=== PATIENT | female | born 1995 | race Caucasian/White ===

== ENCOUNTER → 2018-12-11 14:07 | Outpatient (CLI) | payer OTHER, BC, SELFPAY ==
--- NOTE | 2018-12-11 14:12 | XR_ITS ---
XR clavicle LT CLINICAL INDICATION: Follow-up clavicle fracture, pain following injury ITS.REASON: ap of clavicle, zanca ORDERING PHYSICIAN: Jil Tena MD PATIENT AGE: 23 years Comparison: None FINDINGS: 2 views of the left clavicle demonstrates a displaced midshaft clavicular fracture. The fracture fragment is displaced inferiorly x 15 mm with mild distraction of fracture fragments. The inferior displacement has increased since this exam. There is 0% bony apposition IMPRESSION: Displaced mid shaft clavicle fracture as described
== END ==
PROVIDERS: PCP Family Medicine; Visit Provider Orthopaedic Surgery
DX: S42.002A Fracture of unspecified part of left clavicle, initial encounter for closed fracture (principal)
CPT/HCPCS: 73000

== ENCOUNTER → 2018-12-18 14:24 | Outpatient (CLI) | payer OTHER, BC, SELFPAY ==
--- NOTE | 2018-12-18 14:32 | XR_ITS ---
XR clavicle LT COMPARISON: Left clavicle 12/11/2018 HISTORY: Follow-up fracture TECHNIQUE: 2 views left clavicle FINDINGS: The fracture midshaft left clavicle is again noted there is been interval improvement in the dorsal displacement of the proximal fracture fragment when compared to the previous study. Whereas previously there was 15 mm dorsal displacement of the proximal fracture fragment in relation to the distal fragment there now is 10 mm dorsal displacement. The angulation at the fracture site is 135 degrees. The AC joint appears normal. IMPRESSION: Fracture midshaft left clavicle with interval improvement in the displacement since previous study
== END ==
PROVIDERS: PCP Family Medicine; Visit Provider Orthopaedic Surgery
DX: S42.002A Fracture of unspecified part of left clavicle, initial encounter for closed fracture (principal)
CPT/HCPCS: 73000

== ENCOUNTER → 2019-01-08 14:15 | Outpatient (CLI) | payer OTHER, BC, SELFPAY ==
[2019-01-08 14:39] LABS: Basophils % 0.4 % (0.1-2.0); Eosinophils % 0.6 % (0.1-12.0); Hematocrit 42.3 % (37.0-47.0); Hemoglobin 13.9 g/dL (12.2-16.2); Lymphocytes # 2.3 K/mm3 (0.7-4.5); Lymphocytes % 37.5 % (10-50); Mean Corpuscular HGB Conc 32.8 g/dL (31.8-35.4); Mean Corpuscular Hemoglobin 34.3 pg (27.0-31.2); Mean Corpuscular Volume 104.3 fl (81-99); Mean Platelet Volume 7.8 fl (7.4-10.4); Monocytes # 0.3 K/mm3 (0.1-1.0); Monocytes % 5.2 % (1.7-9.3); Neutrophils # 3.4 K/mm3 (1.8-7.8); Neutrophils % 56.3 % (37.0-80.0); Platelet Count 238 K/mm3 (142-424); Red Blood Count 4.06 M/mm3 (4.20-5.40); Red Cell Distribution Width 13.2 % (11.5-17.5)
[2019-01-08 14:41] LABS: Urine Pregnancy, HCG Qual. Negative (Negative)
[2019-01-08 16:45] LABS: Alanine Aminotransferase 84 U/L (12-78); Albumin Level 4.2 gm/dL (3.4-5.0); Albumin/Globulin Ratio 1.2 (1.1-1.8); Alkaline Phosphatase 103 U/L (46-116); Aspartate Amino Transferase 65 U/L (15-37); Bilirubin,Total 0.6 mg/dL (0.2-1.0); Blood Urea Nitrogen 12 mg/dL (7-18); Calcium 9.2 mg/dL (8.5-10.1); Carbon Dioxide 29 mmol/L (21.0-32.0); Chloride 104 mmol/L (98-107); Creatinine,Serum 0.79 mg/dL (0.55-1.02); Estimated Glomerular Filt Rate 89 ml/min (>60); GFR (African American) 107 ML/MIN (>60); Globulin 3.5 gm/dl (1.3-3.2); Glucose 77 mg/dL (74-106); Sodium 142 mmol/L (136-145); Total Protein,Serum 7.7 gm/dL (6.4-8.2)
== END ==
PROVIDERS: PCP Family Medicine; Visit Provider Orthopaedic Surgery
DX: Z01.818 Encounter for other preprocedural examination (principal)
CPT/HCPCS: 36415; 80053; 81025; 85025

== ENCOUNTER → 2019-01-17 13:50 | Outpatient (CLI) | payer OTHER, BC, SELFPAY ==
--- NOTE | 2019-01-17 13:54 | XR_ITS ---
XR clavicle LT CLINICAL INDICATION: Follow-up surgery/ORIF ITS.REASON: DOS 01/10/19 ORDERING PHYSICIAN: Jil Tena MD PATIENT AGE: 23 years Comparison: 01/09/2019 FINDINGS: Bone plate remains in place overlying the midshaft of the clavicle with good alignment. Developing callus formation is noted superiorly at fracture site. IMPRESSION: Healing nondisplaced mid shaft clavicle fracture status post ORIF
== END ==
PROVIDERS: PCP Family Medicine; Visit Provider Orthopaedic Surgery
DX: S42.002A Fracture of unspecified part of left clavicle, initial encounter for closed fracture (principal)
CPT/HCPCS: 73000

== ENCOUNTER → 2019-02-07 13:48 | Outpatient (CLI) | payer OTHER, BC, SELFPAY ==
--- NOTE | 2019-02-07 13:52 | XR_ITS ---
XR clavicle LT CLINICAL INDICATION: Follow-up surgery, fracture, pain ITS.REASON: post op views ORDERING PHYSICIAN: Jil Tena MD PATIENT AGE: 23 years Comparison: 01/17/2019 FINDINGS: Bone plate remains in place stabilizing mid shaft clavicular fracture. Callus formation noted at fracture. Good alignment. IMPRESSION: No change, good alignment status post ORIF mid shaft clavicular fracture
== END ==
PROVIDERS: PCP Family Medicine; Visit Provider Orthopaedic Surgery
DX: S42.002A Fracture of unspecified part of left clavicle, initial encounter for closed fracture (principal)
CPT/HCPCS: 73000

== ENCOUNTER → 2019-05-14 16:20 | Outpatient (CLI) | payer OTHER, BC, SELFPAY ==
[2019-05-14 17:00] LABS: Alanine Aminotransferase 76 U/L (12-78); Albumin Level 3.8 gm/dL (3.4-5.0); Albumin/Globulin Ratio 1.2 (1.1-1.8); Alkaline Phosphatase 93 U/L (46-116); Anion Gap 12.3 mEq/L (5-15); Aspartate Amino Transferase 51 U/L (15-37); Bilirubin,Total 0.5 mg/dL (0.2-1.0); Blood Urea Nitrogen 13 mg/dL (7-18); Carbon Dioxide 28 mmol/L (21.0-32.0); Chloride 105 mmol/L (98-107); Chol/HDL Ratio 2.9 (1-3.5); Cholesterol 178 mg/dL (140-200); Creatinine,Serum 0.72 mg/dL (0.55-1.02); Estimated Glomerular Filt Rate 99 ml/min (>60); GFR (African American) 119 ML/MIN (>60); Globulin 3.2 gm/dl (1.3-3.2); Glucose 68 mg/dL (74-106); HDL Cholesterol 61 mg/dL (29-89); LDL Cholesterol 109 mg/dL (0-130); Potassium 4.3 mmoL/L (3.5-5.1); Sodium 141 mmol/L (136-145); T4 (Thyroxine) 8.7 ug/dl (4.7-13.3); Thyroid Stimulating Hormone 1.98 uIU/ml (0.358-3.740); Triglycerides 41 mg/dL (30-200); VLDL Cholesterol 8 mg/dL (0-40)
[2019-05-14 17:11] LABS: Basophils % 0.3 % (0.1-2.0); Hematocrit 37.4 % (37.0-47.0); Hemoglobin 12.3 g/dL (12.2-16.2); Lymphocytes # 2.1 K/mm3 (0.7-4.5); Lymphocytes % 54.9 % (10-50); Mean Corpuscular HGB Conc 32.8 g/dL (31.8-35.4); Mean Corpuscular Hemoglobin 32.9 pg (27.0-31.2); Mean Corpuscular Volume 100.3 fl (81-99); Mean Platelet Volume 7.7 fl (7.4-10.4); Monocytes # 0.2 K/mm3 (0.1-1.0); Monocytes % 5.4 % (1.7-9.3); Neutrophils # 1.5 K/mm3 (1.8-7.8); Neutrophils % 38.4 % (37.0-80.0); Platelet Count 243 K/mm3 (142-424); Red Blood Count 3.73 M/mm3 (4.20-5.40); Red Cell Distribution Width 13.6 % (11.5-17.5); White Blood Count 3.9 K/mm3 (4.8-10.8)
[2019-05-14 17:15] LABS: MANUAL DIFFERENTIAL MANUAL DIFFERENTIAL (MANUAL DIFF)
[2019-05-14 19:23] LABS: Eosinophils % 1 % (0-3); Lymphocytes % 62 % (10-50); Microcytosis 1+; Monocytes % 3 % (2-9); Neutrophils % 33 % (42-76); Platelet Estimate Normal; Total Cells Counted 100
[2019-05-17 06:12] LABS: Folate 15.8 ng/mL (>3.0); Vitamin B12 1039 pg/mL (232-1245)
== END ==
PROVIDERS: Visit Provider Physician Assistant
DX: F31.12 Bipolar disorder, current episode manic without psychotic features, moderate (principal); D64.9 Anemia, unspecified
CPT/HCPCS: 80053; 80061; 82607; 82652; 82746; 84436; 84443; 85007; 85025

== ENCOUNTER → 2020-11-11 14:35 | Outpatient (CLI) | payer OTHER, SELFPAY ==
[2020-11-11 15:05] LABS: Basophils % 0.2 % (0.1-2.0); Eosinophils % 0.2 % (0.1-12.0); Hematocrit 38.6 % (37.0-47.0); Hemoglobin 13.1 g/dL (12.2-16.2); Lymphocytes # 2.4 K/mm3 (0.7-4.5); Lymphocytes % 29.5 % (10-50); Mean Corpuscular HGB Conc 33.9 g/dL (31.8-35.4); Mean Corpuscular Volume 94.3 fl (81-99); Mean Platelet Volume 7.5 fl (7.4-10.4); Monocytes # 0.3 K/mm3 (0.1-1.0); Monocytes % 3.4 % (1.7-9.3); Neutrophils # 5.5 K/mm3 (1.8-7.8); Neutrophils % 66.7 % (37.0-80.0); Platelet Count 305 K/mm3 (142-424); Red Blood Count 4.09 M/mm3 (4.20-5.40); Red Cell Distribution Width 13.5 % (11.5-17.5); White Blood Count 8.3 K/mm3 (4.8-10.8)
[2020-11-11 15:16] LABS: INR 0.95 (0.9-1.1); Prothrombin Time 11.2 seconds (9.4-11.8)
[2020-11-11 15:52] LABS: Alanine Aminotransferase 52 U/L (12-78); Albumin Level 4.7 g/dl (3.5-5.0); Albumin/Globulin Ratio 1.4 (1.1-1.8); Alkaline Phosphatase 77 U/L (38-126); Anion Gap 14.1 mEq/L (5-15); Aspartate Amino Transferase 58 U/L (14-36); Bilirubin,Total 0.3 mg/dl (0.2-1.3); Blood Urea Nitrogen 16 mg/dl (7-17); Calcium 9.9 mg/dl (8.4-10.2); Carbon Dioxide 26 mmol/L (22.0-30.0); Chloride 103 mmol/L (98-107); Estimated Glomerular Filt Rate 86 ml/min (>60); GFR (African American) 104 ML/MIN (>60); Globulin 3.3 g/dL (1.3-3.2); Glucose 97 mg/dl (74-100); Potassium 4.1 mmoL/L (3.5-5.1); Sodium 139 mmol/L (136-145)
[2020-11-13 11:12] LABS: Hep A Ab, IgM Negative (Negative); Hep A Ab, Total Positive (Negative); Hep B Core Ab, Total Negative (Negative)
[2020-11-13 11:38] LABS: Hep B Surface Ab, Qual Reactive (.); Hepatitis B Surface Antigen Negative (Negative)
[2020-11-13 11:39] LABS: HIV Screen 4th Generation wRfx Non Reactive (Non Reactive)
[2020-11-15 13:02] LABS: HCV Genotype Charge YES; Hepatitis C Genotype 1a (.)
== END ==
PROVIDERS: Visit Provider Emergency Medicine
DX: B19.20 Unspecified viral hepatitis C without hepatic coma (principal)
CPT/HCPCS: 36415; 80053; 85025; 85610; 86703; 86704; 86706; 86708; 87340; 87522; 87902; G0432

== ENCOUNTER → 2020-12-16 10:38 | Outpatient (CLI) | payer OTHER, SELFPAY ==
[2020-12-16 11:02] LABS: Basophils % 0.7 % (0.1-2.0); Eosinophils # 0.1 K/mm3 (0.0-0.4); Eosinophils % 1.7 % (0.1-12.0); Hematocrit 38.6 % (37.0-47.0); Lymphocytes # 2.3 K/mm3 (0.7-4.5); Lymphocytes % 47.4 % (10-50); Mean Corpuscular HGB Conc 33.6 g/dL (31.8-35.4); Mean Corpuscular Volume 95.3 fl (81-99); Mean Platelet Volume 7.6 fl (7.4-10.4); Monocytes # 0.2 K/mm3 (0.1-1.0); Monocytes % 4.6 % (1.7-9.3); Neutrophils # 2.2 K/mm3 (1.8-7.8); Neutrophils % 45.7 % (37.0-80.0); Platelet Count 282 K/mm3 (142-424); Red Blood Count 4.05 M/mm3 (4.20-5.40); Red Cell Distribution Width 13.4 % (11.5-17.5); White Blood Count 4.9 K/mm3 (4.8-10.8)
[2020-12-16 11:36] LABS: Alanine Aminotransferase 50 U/L (12-78); Albumin Level 4.4 g/dl (3.5-5.0); Albumin/Globulin Ratio 1.5 (1.1-1.8); Alkaline Phosphatase 76 U/L (38-126); Anion Gap 9.3 mEq/L (5-15); Aspartate Amino Transferase 57 U/L (14-36); Bilirubin,Total 0.3 mg/dl (0.2-1.3); Blood Urea Nitrogen 10 mg/dl (7-17); Calcium 9.8 mg/dl (8.4-10.2); Carbon Dioxide 25 mmol/L (22.0-30.0); Chloride 106 mmol/L (98-107); Estimated Glomerular Filt Rate 100 ml/min (>60); GFR (African American) 121 ML/MIN (>60); Globulin 2.9 g/dL (1.3-3.2); Glucose 99 mg/dl (74-100); Potassium 4.3 mmoL/L (3.5-5.1); Sodium 136 mmol/L (136-145); Total Protein,Serum 7.3 g/dl (6.3-8.2)
[2020-12-16 12:07] LABS: Thyroid Stimulating Hormone 2.07 uIU/mL (0.465-4.68)
[2020-12-18 15:16] LABS: Lithium (Eskalith(R)) 0.4 mmol/L (0.6-1.2)
== END ==
PROVIDERS: Visit Provider Nurse Practitioner Psychiatric/Mental Health
DX: Z00.00 Encounter for general adult medical examination without abnormal findings (principal); F31.9 Bipolar disorder, unspecified
CPT/HCPCS: 36415; 80053; 80178; 84443; 85025

== ENCOUNTER → 2021-01-09 10:53 | Outpatient (CLI) | payer OTHER, SELFPAY ==
[2021-01-09 13:26] LABS: Alanine Aminotransferase 63 U/L (12-78); Albumin Level 4.2 g/dl (3.5-5.0); Albumin/Globulin Ratio 1.6 (1.1-1.8); Alkaline Phosphatase 73 U/L (38-126); Aspartate Amino Transferase 57 U/L (14-36); Bilirubin,Total 0.6 mg/dl (0.2-1.3); Blood Urea Nitrogen 15 mg/dl (7-17); Calcium 9.2 mg/dl (8.4-10.2); Carbon Dioxide 28 mmol/L (22.0-30.0); Chloride 105 mmol/L (98-107); Estimated Glomerular Filt Rate 100 ml/min (>60); GFR (African American) 121 ML/MIN (>60); Globulin 2.7 g/dL (1.3-3.2); Glucose 113 mg/dl (74-100); Sodium 138 mmol/L (136-145); Total Protein,Serum 6.9 g/dl (6.3-8.2)
[2021-01-09 13:57] LABS: Thyroid Stimulating Hormone 1.41 uIU/mL (0.465-4.68)
[2021-01-11 10:43] LABS: Lithium (Eskalith(R)) 0.2 mmol/L (0.6-1.2)
== END ==
PROVIDERS: Visit Provider Nurse Practitioner Psychiatric/Mental Health
DX: Z00.00 Encounter for general adult medical examination without abnormal findings (principal); F31.9 Bipolar disorder, unspecified
CPT/HCPCS: 36415; 80053; 80178; 84443

== ENCOUNTER → 2021-02-12 07:46 | Outpatient (CLI) | payer OTHER, SELFPAY ==
--- NOTE | 2021-02-12 07:50 | US_ITS ---
PROCEDURE: US LIVER CLINICAL INDICATION: CHRONIC HEPATITIS C COMPARISON: No exams were available for comparison FINDINGS: Head of the pancreas and visualized abdominal aorta and inferior vena cava are normal. Mild diffuse fatty infiltration of the liver versus hepatocellular disease. No focal liver lesion. Gallbladder is partially contracted. No discrete gallstones or pericholecystic fluid. No dilatation of the intra or extrahepatic bile ducts. Common bile duct measures 2 millimeters. Right kidney is normal. No abdominal ascites. IMPRESSION: Partially contracted gallbladder. No discrete gallstones. No dilatation of the intra or extrahepatic bile ducts. Mild diffuse fatty infiltration of the liver versus hepatocellular disease. Dictated by: Cuate Chan MD 02/12/2021 09:36 Cuate Chan MD in [place] 02/12/2021 09:36
== END ==
PROVIDERS: PCP Emergency Medicine; Visit Provider Physician Assistant
DX: B18.2 Chronic viral hepatitis C (principal)
CPT/HCPCS: 76705

== ENCOUNTER → 2021-03-25 14:57 | Outpatient (CLI) | payer OTHER, SELFPAY ==
[2021-03-25 16:09] LABS: Chloride 103 mmol/L (98-107); Potassium 3.8 mmoL/L (3.5-5.1); Sodium 140 mmol/L (136-145)
[2021-03-25 16:12] LABS: Alanine Aminotransferase 17 U/L (12-78); Albumin Level 4.9 g/dl (3.5-5.0); Albumin/Globulin Ratio 1.8 (1.1-1.8); Alkaline Phosphatase 65 U/L (38-126); Anion Gap 12.8 mEq/L (5-15); Aspartate Amino Transferase 34 U/L (14-36); Bilirubin,Total 0.4 mg/dl (0.2-1.3); Blood Urea Nitrogen 11 mg/dl (7-17); Carbon Dioxide 28 mmol/L (22.0-30.0); Estimated Glomerular Filt Rate 75 ml/min (>60); GFR (African American) 91 ML/MIN (>60); Globulin 2.8 g/dL (1.3-3.2); Glucose 71 mg/dl (74-100); Total Protein,Serum 7.7 g/dl (6.3-8.2)
== END ==
PROVIDERS: Visit Provider Nurse Practitioner
DX: B18.2 Chronic viral hepatitis C (principal)
CPT/HCPCS: 36415; 80053; 87522

== ENCOUNTER 2021-12-20 12:29 | Emergency (ER) | payer OTHER, SELFPAY ==
[2021-12-20 13:47] VITALS: BP 134/86; PULSE 110; RESP 19; TEMP 36.8; O2SAT 100; BMI 24.7
--- NOTE | 2021-12-20 13:48 | HMH.EDUTC ---
[facility] Disposition Clinical Impression: Pharyngitis Qualifiers: Pharyngitis/tonsillitis etiology: unspecified etiology Qualified Code(s): J02.9 - Acute pharyngitis, unspecified Disposition: Home, Self-Care Condition on Discharge: Good Instructions: DI for Strep Throat Additional Instructions: Drink plenty of fluids. Take tylenol or ibuprofen for pain or fever. Take the medications as directed. Follow up with your regular doctor. GO TO THE ER FOR ANY WORSENING SYMPTOMS Prescriptions: Amoxicillin [Amoxicillin 500mg Tab] 500 mg PO TID 10 Days #30 tab Transmission Status: Received by [facility] [employer] methylPREDNISolone [Medrol] 4 mg PO DIRECTED 6 Days #21 packet Transmission Status: Received by [facility] [employer] Referrals: Kt Morataya MD [Primary Care Provider] - Forms: Work/School Release Time of Disposition: 14:21 Medical Decision Making - Medical Records Medical records reviewed: No: I reviewed the patient's medical records. - Chavo Inquiry Pt receiving controlled substance: No Vital Signs: 12/20/21 13:47 12/20/21 14:21 Temperature 98.2 F 98.2 F Temperature Source Oral Oral Pulse Rate 110 H Pulse Rate [Left] 110 H Respiratory Rate 19 19 Blood Pressure 134/86 Blood Pressure [Right Arm] 134/86 Blood Pressure Mean [Right Arm] 102 02 Sat by Pulse Oximetry 100 - Lab Data Lab results reviewed: Yes: I reviewed the patient's lab results. Lab Results 12/20/21 13:42: Group A Strep Rapid Negative Orders (Tests/Meds): ORDERS Category Date Time Status Strep Screen Confirmation Stat Micro 12/20/21 13:42 Received [facility] HPI - General Stated complaint: sore throat Time Seen by Provider: 12/20/21 13:48 Mode of Arrival: Ambulatory Source of Information: Patient Limitations: No Limitations Description of Symptoms (Recalled from Triage Doc. by RN): pt c/o a sore throat. HEENT Symptoms (Recalled from RN notes): Yes Resp Symptoms (Recalled from RN notes): No Skin Symptoms (Recalled from RN notes): No MS Symptoms (Recalled from RN notes): No Functional Status (Recalled from RN notes): wnl - History of Present Illness Provider Complaint: She c/o sore throat for the past 2 days. - Related Data Home Medications Medication Instructions Recorded Confirmed buprenorphine 8 mg-naloxone 2 mg 1 each SUBLINGUAL BID PRN each 05/11/19 08/06/21 sublingual film Previous Rx's Medication Instructions Recorded cholecalciferol (vitamin D3) 25 1,000 unit PO DAILY #90 cap 11/11/20 mcg (1,000 unit) capsule ergocalciferol (vitamin D2) 1,250 50,000 unit PO QWEEK 90 Days #12 11/11/20 mcg (50,000 unit) capsule cap buspirone 10 mg tablet 10 mg PO .COMPLEX #120 tab 11/24/21 cariprazine 3 mg capsule 3 mg PO DAILY #30 cap 11/24/21 lamotrigine 150 mg tablet 150 mg PO BID #60 tab 11/24/21 quetiapine 100 mg tablet 200 mg PO QHS #60 tab 11/24/21 vortioxetine 20 mg tablet 20 mg PO DAILY #30 tab 11/24/21 citalopram 20 mg tablet 20 mg PO DAILY #30 tab 12/03/21 Amoxicillin [Amoxicillin 500mg Tab] 500 mg PO TID 10 Days #30 tab 12/20/21 methylPREDNISolone [Medrol] 4 mg PO DIRECTED 6 Days #21 12/20/21 packet Allergies Allergy/AdvReac Type Severity Reaction Status Date / Time No Known Allergies Allergy Verified 12/03/21 14:13 - Worker's Comp Is this a Worker's Comp case?: No [facility] History - Hepatitis A Screen Drug use history?: No High risk sexual behaviors?: No History of sexually transmitted infection?: No Currently employed?: No Childcare worker?: No Do you have indoor plumbing?: Yes Do you have electricity?: Yes Attestation statement:: This patient has been screened for Hepatitis A risk factors. I have reviewed the patient's past medical history: Yes Medical History: Reports:: Anxiety Denies:: Cancer, Depression, Diabetes Mellitus Type 1, Diabetes Mellitus Type 2, Internal Pacemaker, MRSA, Seizures Other Medical History: Repor
[2021-12-20 14:06] LABS: Strep Scrn Group A (Rapid) Negative (Negative)
[2021-12-20 14:21] VITALS: BP 134/86; PULSE 110; RESP 19; TEMP 36.8
== END 2021-12-20 14:25 | disposition home or self-care (01) ==
PROVIDERS: Emergency Provider Nurse Practitioner Family; PCP Family Medicine
DX: J02.9 Acute pharyngitis, unspecified (principal); F41.9 Anxiety disorder, unspecified; F17.210 Nicotine dependence, cigarettes, uncomplicated
CPT/HCPCS: 87430; 99212; G0463

== ENCOUNTER 2021-12-24 18:12 | Emergency (ER) | payer OTHER, SELFPAY ==
[2021-12-24 19:50] VITALS: BP 0/0; PULSE 0; RESP 0; TEMP -17.7; TEMP 0
== END 2021-12-24 20:36 | disposition home or self-care (01) ==
PROVIDERS: Emergency Provider Nurse Practitioner Family; PCP Family Medicine
DX: J02.9 Acute pharyngitis, unspecified (principal); F31.9 Bipolar disorder, unspecified; Z79.1 Long term (current) use of non-steroidal anti-inflammatories (NSAID); Z79.899 Other long term (current) drug therapy; Z53.21 Procedure and treatment not carried out due to patient leaving prior to being seen by health care provider

== ENCOUNTER 2022-01-12 14:53 | Emergency (ER) | payer OTHER, SELFPAY ==
[2022-01-12 15:00] VITALS: BP 131/95; PULSE 105; RESP 20; TEMP 37; O2SAT 98; BMI 23.6
--- NOTE | 2022-01-12 15:08 | HMH.EDUTC ---
[facility] [place] Disposition Clinical Impression: Bilateral leg pain Disposition: Home, Self-Care Condition on Discharge: Good Instructions: DI for Leg Pain Additional Instructions: Go home and rest. It would be best if you rested tomorrow too. No heavy lifting. No twisting. Take the medications as directed. Follow up with your regular doctor. GO TO THE ER FOR ANY WORSENING SYMPTOMS OR CONCERN, ESPECIALLY BOWEL OR BLADDER ISSUES, SADDLE AREA NUMBNESS, FEVER, ETC Prescriptions: Ibuprofen [Ibuprofen 600mg Tablet] 600 mg PO Q6HP PRN #30 tab PRN Reason: Mild Pain Transmission Status: Received by [facility] Referrals: Kt Morataya MD [Primary Care Provider] - Time of Disposition: 16:01 Medical Decision Making - Medical Records Medical records reviewed: No: I reviewed the patient's medical records. - Chavo Inquiry Pt receiving controlled substance: No Vital Signs: 01/12/22 15:00 01/12/22 16:13 Temperature 98.6 F 98.6 F Temperature Source Oral Pulse Rate 105 H Pulse Rate [Left Radial] 105 H Respiratory Rate 20 20 Blood Pressure 131/95 H Blood Pressure [Right Arm] 131/95 H Blood Pressure Mean [Right Arm] 107 02 Sat by Pulse Oximetry 98 Orders (Tests/Meds): ED MEDICATIONS Discontinued Medications Generic Name Dose Route Start Last Admin Trade Name Freq PRN Reason Stop Dose Admin Ketorolac Tromethamine 60 mg 01/12/22 15:53 01/12/22 16:13 Ketorolac 60mg/2ml Vial IM 01/12/22 15:54 60 mg ONCE ONE Administration [facility] [place] HPI - General Stated complaint: bilateral leg/hip pain Time Seen by Provider: 01/12/22 15:08 Mode of Arrival: Ambulatory Source of Information: Patient Limitations: No Limitations Description of Symptoms (Recalled from Triage Doc. by RN): pt is here for bilateral leg and hip pain. pt c/o pain when lifting her legs off the ground. pt does state that she last used heroin 4 days ago. HEENT Symptoms (Recalled from RN notes): No Resp Symptoms (Recalled from RN notes): No Skin Symptoms (Recalled from RN notes): No MS Symptoms (Recalled from RN notes): Yes Functional Status (Recalled from RN notes): wnl - History of Present Illness Provider Complaint: She has been having bilateral hip and leg pain for the past 1 day. She has a history of herion use and it has been 4 days since she last used. She believes this is the reason she is hurting. She denies any si or hi. - Related Data Home Medications Medication Instructions Recorded Confirmed buprenorphine 8 mg-naloxone 2 mg 1 each SUBLINGUAL BID PRN each 05/11/19 08/06/21 sublingual film Previous Rx's Medication Instructions Recorded cholecalciferol (vitamin D3) 25 1,000 unit PO DAILY #90 cap 11/11/20 mcg (1,000 unit) capsule ergocalciferol (vitamin D2) 1,250 50,000 unit PO QWEEK 90 Days #12 11/11/20 mcg (50,000 unit) capsule cap buspirone 10 mg tablet 10 mg PO .COMPLEX #120 tab 11/24/21 cariprazine 3 mg capsule 3 mg PO DAILY #30 cap 11/24/21 lamotrigine 150 mg tablet 150 mg PO BID #60 tab 11/24/21 vortioxetine 20 mg tablet 20 mg PO DAILY #30 tab 11/24/21 citalopram 20 mg tablet 20 mg PO DAILY #30 tab 12/03/21 Amoxicillin [Amoxicillin 500mg Tab] 500 mg PO TID 10 Days #30 tab 12/20/21 methylPREDNISolone [Medrol] 4 mg PO DIRECTED 6 Days #21 12/20/21 packet quetiapine 100 mg tablet 200 mg PO QHS #60 tab 12/22/21 Ibuprofen [Ibuprofen 600mg 600 mg PO Q6HP PRN #30 tab 01/12/22 Tablet] Allergies Allergy/AdvReac Type Severity Reaction Status Date / Time No Known Allergies Allergy Verified 01/12/22 15:05 - Worker's Comp Is this a Worker's Comp case?: No [facility] History - Hepatitis A Screen Attestation statement:: This patient has been screened for Hepatitis A risk factors. I have reviewed the patient's past medical history: Yes Medical History: Reports:: Anxiety Denies:: Cancer, Depression, Diabetes Mellitus Type 1, Diabetes Mellitus Type 2, Inter
[2022-01-12 16:13] VITALS: BP 131/95; PULSE 105; RESP 20; TEMP 37
== END 2022-01-12 16:14 | disposition home or self-care (01) ==
PROVIDERS: Emergency Provider Nurse Practitioner Family; PCP Family Medicine
DX: M79.604 Pain in right leg (principal); M79.605 Pain in left leg; M25.552 Pain in left hip; M25.551 Pain in right hip; F11.11 Opioid abuse, in remission; F41.9 Anxiety disorder, unspecified
CPT/HCPCS: 96372; 99212; G0463

== ENCOUNTER 2022-01-14 15:43 | Observation (INO) | payer OTHER, SELFPAY ==
[2022-01-14 15:50] VITALS: BP 132/84; PULSE 102; RESP 16; TEMP 37.1; O2SAT 100; BMI 23.6
--- NOTE | 2022-01-14 15:59 | XR_ITS ---
PROCEDURE INFORMATION: Exam: XR Right Hip Exam date and time: 01/14/2022 4:03 PM Age: 26 years old Clinical indication: Hip pain; Right hip; Additional info: Right hip pain, drug user TECHNIQUE: Imaging protocol: XR Right hip. Views: 2 or 3 views hip with pelvis when performed. COMPARISON: No relevant prior studies available. FINDINGS: Bones/joints: Unremarkable. No acute fracture. Soft tissues: Unremarkable. IMPRESSION: No acute findings.
--- NOTE | 2022-01-14 16:15 | HMH.EDUTC ---
[facility] Clinical Impression: Hip pain, acute Qualifiers: Laterality: right Qualified Code(s): M25.551 - Pain in right hip Disposition: Still a Patient Condition on Discharge: Fair Referrals: Kt Morataya MD [Primary Care Provider] - Medical Decision Making - Chavo Inquiry Pt receiving controlled substance: No Chavo was queried for this patient: No Vital Signs: 01/14/22 15:50 01/14/22 16:45 Temperature 98.8 F 98.7 F Temperature Source Oral Oral Pulse Rate [Left] 102 H 92 H Respiratory Rate 16 16 Blood Pressure [Right Arm] 132/84 160/50 H Blood Pressure Mean [Right Arm] 100 86 Blood Pressure Source [Right Arm] Automatic Cuff Blood Pressure Position [Right Arm] Sitting 02 Sat by Pulse Oximetry 100 99 Oxygen Delivery Method Room Air - Lab Data Lab Results 01/14/22 17:10: Urine Color Yellow, Urine Appearance Slightly cloudy, Urine pH 7.0, Ur Specific [place] 1.010, Urine Protein Negative, Urine Glucose (UA) Negative, Urine Ketones Negative, Urine Blood Negative, Urine Nitrate Negative, Urine Bilirubin Negative, Urine Urobilinogen 1.0, Ur Leukocyte Esterase 1+ A Orders (Tests/Meds): ED MEDICATIONS Discontinued Medications Generic Name Dose Route Start Last Admin Trade Name Freq PRN Reason Stop Dose Admin Acetaminophen 1,000 mg 01/14/22 16:45 01/14/22 17:05 Acetaminophen 500mg Tab PO 01/14/22 16:46 1,000 mg ONCE ONE Administration ORDERS Category Date Time Status CT abdomen pelvis wo con Stat Cat Scan 01/14/22 17:06 Ordered C-Reactive Protein Stat Lab 01/14/22 16:44 Ordered Complete Blood Count Auto Diff Stat Lab 01/14/22 16:44 Ordered Comprehensive Metabolic Panel Stat Lab 01/14/22 16:44 Ordered Erythrocyte Sedimentation Rate Stat Lab 01/14/22 16:44 Ordered HCG Qualitative, Serum Stat Lab 01/14/22 16:45 Ordered Lactic Acid Stat Lab 01/14/22 16:44 Ordered Urinalysis-Acute [Urinalysis and Microscopic] Stat Lab 01/14/22 17:10 Results Urine , HCG Qual. Stat Lab 01/14/22 17:19 Ordered Blood Culture Stat Micro 01/14/22 16:47 Ordered Urine Culture Stat Micro 01/14/22 17:10 Received - Radiology Data #1 Image(s): Hip Image Reviewed: Yes I have reviewed radiologist's interpretation IMPRESSION: No acute findings. Medical Decision Narrative: Due to recent IV drug use and having fever with hip pain recommended transfer to the ED for further work up and evaluation and patient agreed with transfer Called ED spoke with staff and patient was moved to room 5 for further treatment [facility] - General Stated complaint: hip pain Time Seen by Provider: 01/14/22 16:15 Mode of Arrival: Ambulatory Source of Information: Patient Limitations: No Limitations Description of Symptoms (Recalled from Triage Doc. by RN): pt c/o R hip pain. pt states the pain is 10/10 and the worst hip pain she has ever had. pt states she woke up Sat. morning and it was like this. she came in the same day and took a torodol shot which helped for a few hours. pt states she ran a 101.7 fever last night. pt has taken tylenol and ibprofen today for the pain. 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 HEENT Symptoms (Recalled from RN notes): No Resp Symptoms (Recalled from RN notes): No Skin Symptoms (Recalled from RN notes): No MS Symptoms (Recalled from RN notes): Yes Functional Status (Recalled from RN notes): wnl - History of Present Illness Provider Complaint: Patient states that she uses IV heroin and is trying to get clean States that she last used last week and got ahold of a bad batch States that the herion was laced with meth States that she has been having issues with place on her left AC but it is looking better States that on Tuesday she woke up with severe pain in her right hip and pelvis area States that she was seen for bilateral hip and leg pain on Tuesday and give injection of Toradol and it did help a little with the pa
[2022-01-14 16:45] VITALS: BP 160/50; PULSE 92; RESP 16; TEMP 37.1; O2SAT 99; BMI 24.0
--- NOTE | 2022-01-14 16:46 | HMH.EDGENADL ---
ED Disposition Condition on Discharge: Good - Critical Care Critical Care Time: No <Jonathan Boswell - Last Filed: 01/14/22 19:57> <Bakari Ramirez - Last Filed: 01/15/22 01:44> Clinical Impression: Effusion of both hip joints, Synovitis of hip, Pulmonary cavitary lesion, SIRS (systemic inflammatory response syndrome) Hip pain, acute Qualifiers: Laterality: right Qualified Code(s): M25.551 - Pain in right hip Disposition: Admitted As Inpatient Attestation: On 01/14/22, the high probability of a clinically significant, sudden or life threatening deterioration of the following system(s) required my full and direct attention, intervention and personal management. The time I documented below is in addition to time spent performing reported procedures but includes the following listed in this critical care notation. Medical Decision Making - Medical Records Medical records reviewed: Yes: I reviewed the patient's medical records. - Chavo Inquiry Pt receiving controlled substance: No - Reevaluation(s) Time: 17:07 (refusing iv/lab draw, r/b/a explained) <Jonathan Boswell - Last Filed: 01/14/22 19:57> - Lab Data Lab results reviewed: Yes: I reviewed the patient's lab results. Result diagrams: 01/14/22 19:28 01/14/22 19:28 - Radiology Data #1 Image(s): Chest, Pelvis, Hip Image Reviewed: Yes I have reviewed radiologist's interpretation Preliminary Findings: Abnormal - CT Data CT Scan: Abdomen, Pelvis, Chest, T-Spine, L-Spine Time Received: 01:[address] Reviewed: Yes: I have viewed the radiologist's interpretation Preliminary Findings: Abnormal (see report ) - ECG Data Tracing #1 Normal Sinus Rhythm: Yes Ischemic changes: non-specific ST-T wave changes - Physician Consults Physician Consulted: tobias Reason -: Admission <Bakari Ramirez - Last Filed: 01/15/22 01:44> Vital Signs: 01/14/22 15:50 01/14/22 16:45 01/14/22 17:30 Temperature 98.8 F 98.7 F Temperature Source Oral Oral Pulse Rate [Left] 102 H 92 H 78 Respiratory Rate 16 16 Blood Pressure [Right Arm] 132/84 160/50 H 137/92 H Blood Pressure Mean [Right Arm] 100 86 107 Blood Pressure Source [Right Arm] Automatic Cuff Blood Pressure Position [Right Arm] Sitting 02 Sat by Pulse Oximetry 100 99 100 Oxygen Delivery Method Room Air Room Air 01/14/22 17:54 01/14/22 18:01 Temperature Temperature Source Pulse Rate [Left] 96 H 87 Respiratory Rate Blood Pressure [Right Arm] 135/97 H 130/73 Blood Pressure Mean [Right Arm] 109 92 Blood Pressure Source [Right Arm] Blood Pressure Position [Right Arm] Sitting 02 Sat by Pulse Oximetry 100 100 Oxygen Delivery Method Room Air Room Air - Lab Data Lab Results 01/14/22 17:10: Urine Color Yellow, Urine Appearance Slightly cloudy, Urine pH 7.0, Ur Specific [place] 1.010, Urine Protein Negative, Urine Glucose (UA) Negative, Urine Ketones Negative, Urine Blood Negative, Urine Nitrate Negative, Urine Bilirubin Negative, Urine Urobilinogen 1.0, Ur Leukocyte Esterase 1+ A, Urine RBC None, Urine WBC 3-5, Ur Squamous Epith Cells 5-10, Urine Bacteria 1+ 01/14/22 17:10: Urine HCG, Qual Negative 01/14/22 19:28: WBC 13.3 H, RBC 3.94 L, Hgb 13.1, Hct 39.2, MCV 99.4 H, MCH 33.2 H, MCHC 33.4, RDW 13.4, Plt Count 505 H, MPV 8.0, Neut % (Auto) 81.4 H, Lymph % (Auto) 13.4, [place] % (Auto) 3.6, Eos % (Auto) 0.3, Baso % (Auto) 1.2, Neut # (Auto) 10.8 H, Lymph # (Auto) 1.8, [place] # (Auto) 0.5, Eos # (Auto) 0.0, Baso # (Auto) 0.2, ESR 44 H 01/14/22 19:28: Sodium 136, Potassium 4.2, Chloride 98, Carbon Dioxide 29, Anion Gap 13.2, BUN 9, Creatinine 0.60, Estimated Creat Clear 136, Estimated GFR 119, Est GFR ( Amer) 144, Glucose 119 H, Calcium 10.2, Total Bilirubin 0.6, AST 22, ALT 18, Alkaline Phosphatase 129 H, C-Reactive Protein 250.8 H, Total Protein 8.6 H, Albumin 4.1, Globulin 4.5 H, Albumin/Globulin Ratio 0.9 L 01/14/22 19:28: Lactate 1.3 01/14/22 19:28: Procalcitonin 0.359
--- NOTE | 2022-01-14 16:52 | PC.NURSE ---
i attempted IV pt started yelling take it out take out pt says she cant stand for someone else to stick her
--- NOTE | 2022-01-14 17:06 | CT_ITS ---
PROCEDURE INFORMATION: Exam: CT Abdomen And Pelvis Without Contrast Exam date and time: 01/14/2022 5:35 PM Age: 26 years old Clinical indication: Pain; Other: Hips; Additional info: Joseph hip pain 5 days, fever, , h/o iv drug use TECHNIQUE: Imaging protocol: Computed tomography of the abdomen and pelvis without contrast. Radiation optimization: All CT scans at this facility use at least one of these dose optimization techniques: automated exposure control; mA and/or kV adjustment per patient size (includes targeted exams where dose is matched to clinical indication); or iterative reconstruction. COMPARISON: CR XR HIP RT 2-3V W/PELVIS 01/14/2022 4:03 PM FINDINGS: Lungs: 12 mm pleural-based region of nodularity laterally in the left lingula. Additional approximate 7 mm region of nodularity anteriorly in the lingula. Demonstration of a 3rd 7 mm irregular soft tissue density focus with central lucency suggestive of cavitation located posteriorly and laterally at the right lung base. In light of clinical history, multiple etiologies including tuberculosis and septic pulmonary emboli could not be excluded. Liver: Normal. No mass. Gallbladder and bile ducts: Normal. No calcified stones. No ductal dilation. Pancreas: Normal. No ductal dilation. Spleen: Normal. No splenomegaly. Adrenal glands: Normal. No mass. Kidneys and ureters: Normal. No hydronephrosis. Stomach and bowel: Unremarkable. No obstruction. No mucosal thickening. Appendix: No evidence of appendicitis. Intraperitoneal space: Unremarkable. No free air. No significant fluid collection. Vasculature: See Lungs finding. Lymph nodes: Unremarkable. No enlarged lymph nodes. Urinary bladder: Unremarkable as visualized. Reproductive: Unremarkable as visualized. Bones/joints: Bilateral low-density collections surrounding both hip joints compatible with joint effusions. Findings incompletely visualized. Soft tissues: Unremarkable. IMPRESSION: 1. Bilateral hip joint effusions. Findings greatest on the right. Findings are nonspecific and may reflect a localized inflammatory process. 2. Demonstration of 3 poorly defined pleural-based soft tissue density nodules at both lung bases. Lesion in the right lower lobe appears cavitated. Clinically correlate as septic pulmonary emboli in light of history of IV drug abuse should be considered. Other etiologies could not be excluded. Recommend follow-up with computerized tomography of the thorax.
[2022-01-14 17:12] LABS: Microscopic, Urine URINE MICROSCOPIC (MICROSCOPIC)
[2022-01-14 17:16] LABS: Bilirubin,Urine Negative (Negative); Blood, Urine Negative (Negative); Color,Urine YELLOW (Yellow); Glucose,Urine (UA) Negative (Negative); Ketones,Urine Negative (Negative); Leukocyte Esterase,Urine 1+ (Negative); Nitrate,Urine Negative (Negative); Protein,Urine Negative (Negative)
--- NOTE | 2022-01-14 17:17 | PC.NURSE ---
lab called with glucose of 621 aware
[2022-01-14 17:19] LABS: Appearance,Urine Slightly Cloudy (Clear)
[2022-01-14 17:25] LABS: Urine Pregnancy, HCG Qual. Negative (Negative)
[2022-01-14 17:27] LABS: Bacteria,Urine 1+ /lpf
[2022-01-14 17:30] VITALS: BP 137/92; PULSE 78; O2SAT 100
--- NOTE | 2022-01-14 17:44 | PC.NURSE ---
patient to Radiology by wheelchair with technical support agent
[2022-01-14 17:54] VITALS: BP 135/97; PULSE 96; O2SAT 100
[2022-01-14 18:01] VITALS: BP 130/73; PULSE 87; O2SAT 100
--- NOTE | 2022-01-14 18:46 | PC.NURSE ---
ED MD speaking with patient at bs
--- NOTE | 2022-01-14 19:04 | PC.NURSE ---
pt refused all blood work
--- NOTE | 2022-01-14 19:12 | CT_ITS ---
PROCEDURE INFORMATION: Exam: CTA Chest With Contrast Exam date and time: 01/14/2022 8:03 PM Age: 26 years old Clinical indication: Fever; Prior surgery; Additional info: Lung base lesions, fever, h/o iv drug use TECHNIQUE: Imaging protocol: Computed tomographic angiography of the chest with contrast. 3D rendering (Not supervised by radiologist): MIP and/or 3D reconstructed images were created by the technologist. Radiation optimization: All CT scans at this facility use at least one of these dose optimization techniques: automated exposure control; mA and/or kV adjustment per patient size (includes targeted exams where dose is matched to clinical indication); or iterative reconstruction. Contrast material: ISOVUE 370; Contrast volume: 70 ml; Contrast route: INTRAVENOUS (IV); COMPARISON: CT ABDOMEN PELVIS WO CON 01/14/2022 5:35 PM FINDINGS: Pulmonary arteries: No evidence of pulmonary embolus. Aorta: Unremarkable. No aortic aneurysm. No aortic dissection. Lungs: There is a 3 mm subpleural nodule superiorly in the left upper lobe. Additional previously demonstrated subpleural nodules located anteriorly in the right upper lobe are again demonstrated. A cavitating lesion is demonstrated posteriorly and laterally in the right lung base. This is demonstrated on series 6, image number 96. A pleural based poorly defined region of opacification is again identified laterally at the left lung base. Pleural spaces: No pleural effusions are demonstrated. Calcified right paratracheal lymph nodes are partially visualized. Heart: Unremarkable. No cardiomegaly. No pericardial effusion. Lymph nodes: See Pleural spaces finding. Bones/joints: Unremarkable. No acute fracture. Soft tissues: Unremarkable. IMPRESSION: 1. No evidence of pulmonary embolus. 2. Multiple noncalcified nodules in a subpleural or pleural-based location as described above, 1 of which demonstrates focal cavitation. Clinically correlate regarding infectious, particularly etiology. 3. Evidence of prior granulomatous disease.
[2022-01-14 19:46] LABS: Basophils # 0.2 K/mm3 (0-0.2); Basophils % 1.2 % (0.1-2.0); Eosinophils % 0.3 % (0.1-12.0); Hematocrit 39.2 % (37.0-47.0); Hemoglobin 13.1 g/dL (12.2-16.2); Lymphocytes # 1.8 K/mm3 (0.7-4.5); Lymphocytes % 13.4 % (10-50); Mean Corpuscular HGB Conc 33.4 g/dL (31.8-35.4); Mean Corpuscular Hemoglobin 33.2 pg (27.0-31.2); Mean Corpuscular Volume 99.4 fl (81-99); Monocytes # 0.5 K/mm3 (0.1-1.0); Monocytes % 3.6 % (1.7-9.3); Neutrophils # 10.8 K/mm3 (1.8-7.8); Neutrophils % 81.4 % (37.0-80.0); Platelet Count 505 K/mm3 (142-424); Red Blood Count 3.94 M/mm3 (4.20-5.40); Red Cell Distribution Width 13.4 % (11.5-17.5); White Blood Count 13.3 K/mm3 (4.8-10.8)
[2022-01-14 19:48] LABS: Chloride 98 mmol/L (98-107); Potassium 4.2 mmoL/L (3.5-5.1); Sodium 136 mmol/L (136-145)
[2022-01-14 19:51] LABS: Alanine Aminotransferase 18 U/L (12-78); Albumin Level 4.1 g/dl (3.5-5.0); Albumin/Globulin Ratio 0.9 (1.1-1.8); Alkaline Phosphatase 129 U/L (38-126); Anion Gap 13.2 mEq/L (5-15); Aspartate Amino Transferase 22 U/L (14-36); Bilirubin,Total 0.6 mg/dl (0.2-1.3); Blood Urea Nitrogen 9 mg/dl (7-17); Carbon Dioxide 29 mmol/L (22.0-30.0); Creatinine Clearance Estimated 136 mL/min (50-200); Estimated Glomerular Filt Rate 119 ml/min (>60); GFR (African American) 144 ML/MIN (>60); Globulin 4.5 g/dL (1.3-3.2); Total Protein,Serum 8.6 g/dl (6.3-8.2)
[2022-01-14 19:52] LABS: Calcium 10.2 mg/dl (8.4-10.2); Glucose 119 mg/dl (74-100)
[2022-01-14 19:57] LABS: C-Reactive Protein 250.8 mg/L (0-4)
[2022-01-14 20:02] LABS: Lactic Acid 1.3 mmol/L (0.7-2.1)
--- NOTE | 2022-01-14 20:10 | PC.NURSE ---
Pt gone to RAD
--- NOTE | 2022-01-14 20:17 | PC.NURSE ---
Pt back from RAD
[2022-01-14 20:24] LABS: Alanine Aminotransferase 19 U/L (12-78); Albumin Level 4.2 g/dl (3.5-5.0); Alkaline Phosphatase 132 U/L (38-126); Aspartate Amino Transferase 22 U/L (14-36); Bilirubin,Indirect 0.4 mg/dL (0.0-0.9); Bilirubin,Total 0.4 mg/dl (0.2-1.3); Bilirubin,Unconjugated 0.5 mg/dL (0.0-1.1); Total Protein,Serum 8.7 g/dl (6.3-8.2)
[2022-01-14 20:38] LABS: Erythrocyte Sedimentation Rate 44 mm/hr (0-20)
[2022-01-14 20:42] LABS: Procalcitonin 0.359 ng/mL (0.0-2.0)
--- NOTE | 2022-01-14 20:58 | ECG_ITS ---
APPROVED REPORT Exam: Resting ECG HR:92 bpm ECG Measurements Heart Rate 92 AXES HI 140 P 47 QRSd 100 QRS 61 QT 347 T 65 QTc 397 Conclusion SINUS RHYTHM NORMAL ECG UNCONFIRMED REPORT Electronically signed by : See Van MD 01/16/2022 16:02:55
[2022-01-14 21:03] LABS: Coronavirus 19, PCR Not Detected (NotDetected); Influenza A, PCR Not Detected (NotDetected); Influenza B, PCR Not Detected (NotDetected)
--- NOTE | 2022-01-14 22:33 | CT_ITS ---
PROCEDURE INFORMATION: Exam: CT Lumbar Spine With Contrast Exam date and time: 01/14/2022 11:36 PM Age: 26 years old Clinical indication: Screening exam; Other; R/O abscess; Additional info: Pain TECHNIQUE: Imaging protocol: Computed tomography images of the lumbar spine with intravenous contrast. Radiation optimization: All CT scans at this facility use at least one of these dose optimization techniques: automated exposure control; mA and/or kV adjustment per patient size (includes targeted exams where dose is matched to clinical indication); or iterative reconstruction. Contrast material: ISOVUE; Contrast volume: 50 ml; Contrast route: IV; COMPARISON: CT ABDOMEN PELVIS WO CON 01/14/2022 5:35 PM FINDINGS: Vertebrae: Lumbar vertebral body heights are normal throughout. Discs/Spinal canal/Neural foramina: Disc space heights are well maintained. Soft tissues: Normal paraspinous soft tissues. No evidence of edema or fluid collection. IMPRESSION: Normal lumbar spine. No features of discitis or osteomyelitis.
--- NOTE | 2022-01-14 22:33 | CT_ITS ---
PROCEDURE INFORMATION: Exam: CT Thoracic Spine With Contrast Exam date and time: 01/14/2022 11:36 PM Age: 26 years old Clinical indication: Screening exam; Other; R/O abscess; Additional info: Pain TECHNIQUE: Imaging protocol: Computed tomography images of the thoracic spine with intravenous contrast. Radiation optimization: All CT scans at this facility use at least one of these dose optimization techniques: automated exposure control; mA and/or kV adjustment per patient size (includes targeted exams where dose is matched to clinical indication); or iterative reconstruction. Contrast material: ISOVUE; Contrast volume: 50 ml; Contrast route: IV; COMPARISON: CT ABDOMEN PELVIS WO CON 01/14/2022 5:35 PM FINDINGS: Vertebrae: Vertebral body heights are normal throughout. Discs/Spinal canal/Neural foramina: Disc space heights are normal throughout. Other bones/joints: Prior ORIF of the left clavicle noted. No evidence of hardware failure. There is no evidence of bony destructive change. Soft tissues: Unremarkable. Lungs: Visualized lung parenchyma is clear. IMPRESSION: Normal thoracic spine. No features of discitis or osteomyelitis.
--- NOTE | 2022-01-14 22:33 | CT_ITS ---
PROCEDURE INFORMATION: Exam: CT Pelvis With Contrast Exam date and time: 01/14/2022 11:44 PM Age: 26 years old Clinical indication: Hip pain; Bilateral TECHNIQUE: Imaging protocol: Computed tomography images of the pelvis with intravenous contrast. Radiation optimization: All CT scans at this facility use at least one of these dose optimization techniques: automated exposure control; mA and/or kV adjustment per patient size (includes targeted exams where dose is matched to clinical indication); or iterative reconstruction. Contrast material: ISOVUE; Contrast volume: 50 ml; Contrast route: IV; COMPARISON: CT ABDOMEN PELVIS WO CON 01/14/2022 5:35 PM FINDINGS: Stomach and bowel: Visualized small bowel and colon are unremarkable. Appendix: No evidence of appendicitis. Intraperitoneal space: Unremarkable. No free air. No significant fluid collection. Lymph nodes: Unremarkable. No enlarged lymph nodes. Urinary bladder: Normal. No mass. Reproductive: Normal as visualized. Bones/joints: Bilateral sacroiliac sclerosis noted. No erosive disease. Bilateral hip joint effusions are evident. No definite joint capsule enhancement is observed. Soft tissues: Unremarkable. IMPRESSION: No acute bony abnormality is seen, but there are bilateral hip joint effusions which could reflect septic arthropathy. Recommend arthrocentesis.
--- NOTE | 2022-01-15 01:08 | PC.NURSE ---
Dr. Angie ortega
--- NOTE | 2022-01-15 01:23 | PC.NURSE ---
Dr. Adams paged again
--- NOTE | 2022-01-15 01:24 | PC.NURSE ---
ALAINA ARAMNDO speaking to Dr. Adams
--- NOTE | 2022-01-15 01:33 | PC.NURSE ---
Notified joss house keeper of pt admission and need for bed assignment
[2022-01-15 01:37] VITALS: BMI 24.1
[2022-01-15 02:14] VITALS: BP 119/77; PULSE 93; RESP 16; TEMP 37.1; O2SAT 97
--- NOTE | 2022-01-15 02:30 | PC.NURSE ---
patient up to floor via wheelchair @ this time.
[2022-01-15 03:54] VITALS: BP 124/84; PULSE 81; RESP 16; TEMP 36.8; O2SAT 100
--- NOTE | 2022-01-15 04:29 | PC.NURSE ---
Patient admitted to floor. Patient states current pain regimen is helping with right hip pain. Patient now resting in bed call light in reach. Will continue to medicate per mar for pain.
[2022-01-15 04:33] VITALS: BMI 24.1
--- NOTE | 2022-01-15 06:40 | PC.NURSE ---
Spoke to patient regarding no smoking policy including ecigs and vapes. Patient states she understands this is not allowed in or around the facility.
[2022-01-15 07:00] LABS: Basophils # 0.1 K/mm3 (0-0.2); Basophils % 0.8 % (0.1-2.0); Eosinophils # 0.1 K/mm3 (0.0-0.4); Eosinophils % 0.7 % (0.1-12.0); Hematocrit 35.1 % (37.0-47.0); Lymphocytes # 2.7 K/mm3 (0.7-4.5); Mean Corpuscular HGB Conc 32.6 g/dL (31.8-35.4); Mean Corpuscular Hemoglobin 33.1 pg (27.0-31.2); Mean Corpuscular Volume 101.6 fl (81-99); Mean Platelet Volume 8.1 fl (7.4-10.4); Monocytes # 0.4 K/mm3 (0.1-1.0); Neutrophils % 60.5 % (37.0-80.0); Platelet Count 438 K/mm3 (142-424); Red Blood Count 3.46 M/mm3 (4.20-5.40); Red Cell Distribution Width 13.5 % (11.5-17.5); White Blood Count 8.3 K/mm3 (4.8-10.8)
--- NOTE | 2022-01-15 07:03 | HMH.PHAVTE ---
[facility] Pharmacy VTE Monitoring - Patient Demographics Admission date: 01/14/22 Report Date: 01/15/22 Time: 07:03 Allergies/Adverse Reactions: Patient Allergies No Known Allergies Allergy (Verified 01/12/22 15:05) Height: 1.6 m Weight: 61.779 kg Patient Problems: Current Active Problems Hip pain, acute (Acute) Effusion of both hip joints (Acute) Synovitis of hip (Acute) Pulmonary cavitary lesion (Acute) SIRS (systemic inflammatory response syndrome) (Acute) - VTE Risk Labs: VTE Related Lab Results Hgb 13.1 g/dL (12.2-16.2) 01/14/22 19:28 Hct 35.1 % (37.0-47.0) L 01/15/22 06:20 Plt Count 438 K/mm3 (142-424) H 01/15/22 06:20 BUN 9 mg/dl (7-17) 01/14/22 19:28 Creatinine 0.60 mg/dl (0.52-1.04) 01/14/22 19:28 Estimated Creat Clear 136 mL/min (50-200) 01/14/22 19:28 VTE Score: 1 VTE Risk Level: Very Low Risk - Prophylaxis VTE Prophylaxis Ordered?: Yes Types of VTE Prophylaxis: TEDS Knee High Location of Applied Device: Bilateral Lower Extremeties
[2022-01-15 07:10] LABS: Hemoglobin 11.5 g/dL (12.2-16.2)
[2022-01-15 07:12] LABS: Anion Gap 11.7 mEq/L (5-15); Blood Urea Nitrogen 9 mg/dl (7-17); Carbon Dioxide 26 mmol/L (22.0-30.0); Chloride 104 mmol/L (98-107); Creatinine Clearance Estimated 163 mL/min (50-200); Estimated Glomerular Filt Rate 147 ml/min (>60); GFR (African American) 178 ML/MIN (>60); Glucose 107 mg/dl (74-100); Potassium 3.7 mmoL/L (3.5-5.1); Sodium 138 mmol/L (136-145)
--- NOTE | 2022-01-15 07:28 | HMH.HP ---
*Admission Date: 01/14/22 *Chief complaint: joint pain, fever. *History of present illness: Ms. Pulliam is a 26-year-old female with history of IV drug abuse, last used a week ago. Presented to the ER last night because of worsening pain in her hips, difficulty walking, and fevers throughout the week. She had a similar episode last weekend, began on Tuesday where she went to the [facility] and was given Toradol and sent home. Unfortunately has had persistent pain in her hips. Was using IV heroin daily through last week until deciding to get clean after last using last Tuesday. Has been on buprenorphine. Denies any fever or chills at this time. Work-up in the ER concerning for septic arthritis. Labs showing elevated inflammatory markers, white cell count greater than 13,000, pain with ambulation and difficulty bearing weight. Noted to have effusions on CT bilaterally in her hips, right worse than left. Chest CT showing cavitary lesion in her lung. Cultures obtained, still pending at this time. Initiated on broad-spectrum antibiotics and admitted to medicine for further management. On evaluation this morning she is feeling somewhat better but still has prominent pain in her hips. No fever overnight. Tolerating p.o. intake. Denies any diarrhea or vomiting overnight. No shortness of breath, stable on room air. [facility] History I have reviewed the patient's past medical history: Yes Medical History: Reports:: Anxiety Denies:: Cancer, Depression, Diabetes Mellitus Type 1, Diabetes Mellitus Type 2, Internal Pacemaker, MRSA, Seizures *Have you ever received a pneumonia vaccine?: No *Have you received a flu vaccine this season?: Yes Other Medical History: Reports: Other. Denies: Blood Transfusion Reaction Other Surgeries: Yes: No Previous Surgery, Other. No: Pacemaker Amputation: No Fractures: No - *Social History Smoking Status: Current every day smoker Tobacco Type: e-cigarettes # Packs/Day (cigarettes): 1 Alcohol Intake: former Alcohol Intake Frequency:: a few times a week Substance Use Type: marijuana, heroin, IV drugs *Occupational Status:: employed Housing: house *Travel in the last 8 weeks: None - Psychiatric History Pschychiatric History:: Reports:: Anxiety Denies:: Depression Family Hx:: No significant family history Review of Systems - Review of Systems Review of systems:: pertinent systems reviewed and negative unless documented below (14 point review of systems performed, pertinent positives and negatives as per HPI) - *Neurologic Denies headache(s), Denies seizure-like activity Meds Home Medications Medication Instructions Recorded Confirmed Type Buprenorphine HCl/Naloxone HCl 1 each SL BID 01/15/22 01/15/22 History [Buprenorphine-Nalox 8-2Mg Film] Buspirone HCl [Buspar 10mg 10 mg PO QIDP PRN 01/15/22 01/15/22 History tablet] Quetiapine Fumarate 200 mg PO HS 01/15/22 01/15/22 History Allergies Allergy/AdvReac Type Severity Reaction Status Date / Time No Known Allergies Allergy Verified 01/12/22 15:05 Exam Vital signs and Labs for Last 24 Hours: Temp Pulse Resp BP Pulse Ox 98.3 F 81 16 124/84 100 01/15/22 03:54 01/15/22 03:54 01/15/22 03:54 01/15/22 03:54 01/15/22 03:54 Laboratory Results - last 24 hr 01/14/22 17:10: Urine Color Yellow, Urine Appearance Slightly cloudy, Urine pH 7.0, Ur Specific [place] 1.010, Urine Protein Negative, Urine Glucose (UA) Negative, Urine Ketones Negative, Urine Blood Negative, Urine Nitrate Negative, Urine Bilirubin Negative, Urine Urobilinogen 1.0, Ur Leukocyte Esterase 1+ A, Urine RBC None, Urine WBC 3-5, Ur Squamous Epith Cells 5-10, Urine Bacteria 1+ 01/14/22 17:10: Urine HCG, Qual Negative 01/14/22 19:28: WBC 13.3 H, RBC 3.94 L, Hgb 13.1, Hct 39.2, MCV 99.4 H, MCH 33.2 H, MCHC 33.4, RDW 13.4, Plt Count 505 H, MPV 8.0, Neut % (Auto) 81.4 H, Lymph % (Auto) 13.4, Prow[place] % (Auto) 3.6, Eos % (Auto) 0.3, Baso % (Auto) 1.2, Neut # (Auto) 10.8 H, Lym
[2022-01-15 07:29] VITALS: BP 116/69; PULSE 91; RESP 18; TEMP 37.1; O2SAT 97
--- NOTE | 2022-01-15 08:12 | HMH.PHACONS ---
- Pharmacy Consult Date: 01/15/22 Time: 08:12 Referring provider: DR. FOSTER Reason for Consult:: VANCOMYCIN DOSING Allergies and ADEs:: Allergies Allergy/AdvReac Type Severity Reaction Status Date / Time No Known Allergies Allergy Verified 01/12/22 15:05 Home Medications:: Home Medications Medication Instructions Recorded Confirmed Type Buprenorphine HCl/Naloxone HCl 1 each SL BID 01/15/22 01/15/22 History [Buprenorphine-Nalox 8-2Mg Film] Buspirone HCl [Buspar 10mg 10 mg PO QIDP PRN 01/15/22 01/15/22 History tablet] Quetiapine Fumarate 200 mg PO HS 01/15/22 01/15/22 History lamoTRIgine [Lamotrigine] 150 mg PO BID 01/15/22 01/15/22 History Height: 1.6 m Weight: 61.779 kg Laboratory Results:: Laboratory Results - last 24 hr 01/14/22 17:10: Urine Color Yellow, Urine Appearance Slightly cloudy, Urine pH 7.0, Ur Specific [place] 1.010, Urine Protein Negative, Urine Glucose (UA) Negative, Urine Ketones Negative, Urine Blood Negative, Urine Nitrate Negative, Urine Bilirubin Negative, Urine Urobilinogen 1.0, Ur Leukocyte Esterase 1+ A, Urine RBC None, Urine WBC 3-5, Ur Squamous Epith Cells 5-10, Urine Bacteria 1+ 01/14/22 17:10: Urine HCG, Qual Negative 01/14/22 19:28: WBC 13.3 H, RBC 3.94 L, Hgb 13.1, Hct 39.2, MCV 99.4 H, MCH 33.2 H, MCHC 33.4, RDW 13.4, Plt Count 505 H, MPV 8.0, Neut % (Auto) 81.4 H, Lymph % (Auto) 13.4, Broome % (Auto) 3.6, Eos % (Auto) 0.3, Baso % (Auto) 1.2, Neut # (Auto) 10.8 H, Lymph # (Auto) 1.8, Bro[place] # (Auto) 0.5, Eos # (Auto) 0.0, Baso # (Auto) 0.2, ESR 44 H 01/14/22 19:28: Sodium 136, Potassium 4.2, Chloride 98, Carbon Dioxide 29, Anion Gap 13.2, BUN 9, Creatinine 0.60, Estimated Creat Clear 136, Estimated GFR 119, Est GFR ( Amer) 144, Glucose 119 H, Calcium 10.2, Total Bilirubin 0.6, AST 22, ALT 18, Alkaline Phosphatase 129 H, C-Reactive Protein 250.8 H, Total Protein 8.6 H, Albumin 4.1, Globulin 4.5 H, Albumin/Globulin Ratio 0.9 L 01/14/22 19:28: Lactate 1.3 01/14/22 19:28: Procalcitonin 0.359 01/14/22 19:28: Total Bilirubin 0.4, Direct Bilirubin 0.0, Conjugated Bilirubin 0.0, Indirect Bilirubin 0.4, Unconjugated Bilirubin 0.5, AST 22, ALT 19, Alkaline Phosphatase 132 H, Total Protein 8.7 H, Albumin 4.2 01/14/22 20:59: SARS-CoV-2 (PCR) Not detected, Influenza A Untype (PCR) Not detected, Influenza Type B (PCR) Not detected 01/15/22 06:20: WBC 8.3 D, RBC 3.46 L, Hgb 11.5 L D, Hct 35.1 L, MCV 101.6 H, MCH 33.1 H, MCHC 32.6, RDW 13.5, Plt Count 438 H, MPV 8.1, Neut % (Auto) 60.5, Lymph % (Auto) 33.0, Broome % (Auto) 5.0, Eos % (Auto) 0.7, Baso % (Auto) 0.8, Neut # (Auto) 5.0, Lymph # (Auto) 2.7, Broome # (Auto) 0.4, Eos # (Auto) 0.1, Baso # (Auto) 0.1 01/15/22 06:20: Sodium 138, Potassium 3.7, Chloride 104, Carbon Dioxide 26, Anion Gap 11.7, BUN 9, Creatinine 0.50 L, Estimated Creat Clear 163, Estimated GFR 147, Est GFR ( Amer) 178 D, Glucose 107 H, Calcium 9.0 Medical History: Reports:: Anxiety Denies:: Cancer, Depression, Diabetes Mellitus Type 1, Diabetes Mellitus Type 2, Internal Pacemaker, MRSA, Seizures Assessment and Plan - Assessment and plan all Dx Assessment and Plan for all problems:: Objective: Patient: Floor: Age: 26 yo Serum creatinine: 0.5 mg/dL Height: 63.0 Inches Weight (kg): 61.8 Assessment: IBW (kg): 52.40 Dosing wt(kg): 61.8 Estimated Creatinine clearance (ml/min): 130 Clearance limited to 130 ml/min to reduce risk of overdosing. CRCL method: Cockcroft and Gault using ibw(default). Drug selected: Vancomycin Loading dose (mg): 0 Vd (liters): 49.4 (factor used: 0.8 L/kg) Ousmane (hr-1): 0.112 Half life (hrs): 6.19 Recommended dose: 1000 mg Interval: 8 hrs Infusion time (hrs): 2.0 Predicted peak (mcg/mL): 30.6 Predicted trough (mcg/mL): 15.63 Total body weight is being used for vancomycin dosing. Recommendations:
--- NOTE | 2022-01-15 08:48 | MR_ITS ---
FINAL REPORT CLINICAL HISTORY: SEPTIC ARTHRITIS. RT AND LEFT HIP PAIN. PATIENT WAS SUPPOSE TO HAVE A LEFT AND RIGHT HIP WITH AND WITHOUT contrast done BUT DONE WITHOUT DUE TO PAIN. Patient could not sit through entire exam with sequences so sent over images acquired. Right hip pain is worse. FINDINGS: Multiplanar MR imaging of the pelvis was performed without contrast. There is no evidence of fracture or dislocation. There is mild bone marrow edema in the posterior column of the left acetabulum which is nonspecific. There is no evidence of avascular necrosis. No bony mass is identified. No labral tear is identified. Large bilateral joint effusions are seen. Septic arthritis not excluded. There is adjacent soft tissue edema, right greater than left.. The tendons are intact. The musculature is intact. No soft tissue mass or cyst is identified. IMPRESSION: Mild bone marrow edema of the posterior column of the left acetabulum, nonspecific. Large bilateral joint effusions, septic arthritis not excluded. Reviewed, Interpreted and Dictated by Bryon Ortiz III, MD Transcribed by Aicha Agarwal Authenticated by Bryon Ortiz III, MD on 01/15/2022 11:23:13 AM [facility]
--- NOTE | 2022-01-15 09:32 | PC.NURSE ---
Pt is going to MRI
--- NOTE | 2022-01-15 10:24 | PC.NURSE ---
Spoke with MRI pt is unable to tolerate the pain to finish the MRI scans.
--- NOTE | 2022-01-15 10:25 | PC.NURSE ---
Called Dr. Adams's office to let him know that pt is stating that she is unable to tolerate scans. What he wants done with MRI scans she did obtain.
--- NOTE | 2022-01-15 10:35 | HMH.PHAINT ---
MEDICATION RECONCILIATION COMPLETED ON PATIENT USING EXTERNAL FILL HISTORY FROM PHARMACY, YOBANY REPORT, AND MEDICATIONS PATIENT BROUGHT IN. -MARTHA BARROND
--- NOTE | 2022-01-15 13:24 | PC.NURSE ---
Pt is very anxious about everything going on. She is wanting to know if she can have buspar or something. I also was advised to see if he has seen pts MRI results to know what the next plan is. Waiting for a call back.
--- NOTE | 2022-01-15 14:49 | HMH.DCSUM ---
General - General Admission date:: 01/15/22 Discharge date: 01/15/22 HPI HPI: Ms. Pulliam is a 26-year-old female with history of IV drug abuse, last used a week ago. Presented to the ER last night because of worsening pain in her hips, difficulty walking, and fevers throughout the week. She had a similar episode last weekend, began on Tuesday where she went to the [facility] and was given Toradol and sent home. Unfortunately has had persistent pain in her hips. Was using IV heroin daily through last week until deciding to get clean after last using last Tuesday. Has been on buprenorphine. Denies any fever or chills at this time. Work-up in the ER concerning for septic arthritis. Labs showing elevated inflammatory markers, white cell count greater than 13,000, pain with ambulation and difficulty bearing weight. Noted to have effusions on CT bilaterally in her hips, right worse than left. Chest CT showing cavitary lesion in her lung. Cultures obtained, still pending at this time. Initiated on broad-spectrum antibiotics and admitted to medicine for further management. On evaluation this morning she is feeling somewhat better but still has prominent pain in her hips. No fever overnight. Tolerating p.o. intake. Denies any diarrhea or vomiting overnight. No shortness of breath, stable on room air. Hospital Course Hospital Course: 26-year-old female with history of IV drug use, last used a week ago per her report. Developed fever, difficulty walking from pain, soreness in bilateral hips. On presentation to the ER found to have elevated inflammatory markers, elevated white count, pain with walking/bearing weight. No fever in the ER. 3 of 4 Dhara criteria concerning for septic arthritis. Admitted to medicine for further management. Problems addressed as follows: Bilateral hip effusions Septic arthritis -3 of 4 Dhara criteria, 93% chance of septic arthritis. Started on broad-spectrum IV antibiotics with ceftriaxone and vancomycin. Improvement in WBC overnight. We unfortunately do not have orthopedics in house at this time. Patient would benefit from washout of joints and aspiration of fluid for more definitive diagnosis. contacted fo rtransfer and more definitive therapy with Ortho and ID. accepted to [facility]. - Images: CTs, Xrays, and MRI sent via [facility] to . - images showing large effusions of bilateral hips - pain treated with morphine and Toradol. History of IV drug use -Cavitary lung lesion concerning for infectious etiology, echocardiogram obtained. Blood cultures obtained. -Likely an underlying etiology for her risk for septic arthritis and cavitary lung lesions. No signs of withdrawal during admission. Bipolar 1 -Continued home medications for anxiety and bipolar. See Med [facility] [place] transferred to tertiary center for further management. Appreciate their help in caring for this patient. Objective Vital signs: Temp Pulse Resp BP Pulse Ox 98.8 F 91 H 18 116/69 97 01/15/22 07:29 01/15/22 07:29 01/15/22 07:29 01/15/22 07:29 01/15/22 07:29 Narrative: - Constitutional minimal distress, average body habitus - *Routine HEENT Exam Head: Present: normocephalic Eye: Present: EOMI, PERRL ENT: Present: mucous membranes moist - *Routine Neck Exam Present: supple. Absent: lymphadenopathy - *Routine Respiratory Exam Present: CTA bilaterally - *Routine Cardiovascular Exam Present: RRR. Absent: murmur - *Routine Abdominal Exam Present: soft, normoactive bowel sounds. Absent: tenderness - *Routine Extremities Exam No edema, Mildly erythematous track hart left AC, no stigmata of endocarditis peripherally; pain with any movement of her legs that originates in her hips; hips tender to palpation bilaterally. No swelling or pain in her knees. - *Routine Skin Exam Present: warm. Absent: rash - *Routine Neurological Exam Present: alert, oriented X3 Results
--- NOTE | 2022-01-15 14:54 | PC.NURSE ---
Called report to Dang UPTON at [facility] ()
[2022-01-15 16:00] VITALS: BP 117/81; PULSE 101; RESP 18; TEMP 36.7; O2SAT 96
--- NOTE | 2022-01-15 16:06 | PC.NURSE ---
Pt's mother was given her home medications. Shiloh UPTON, Pt, and I verified the amount of one half pill of suboxone. Pt witnessed me given her mother her home medications to take with her.
[2022-01-15 19:41] VITALS: BP 134/85; PULSE 100; RESP 20; TEMP 37; O2SAT 98
--- NOTE | 2022-01-15 21:09 | PC.NURSE ---
Gave patient home medication back and encouraged her to send medication home with her mother. Returned Vraylar 3mg capsule- 6 capsules remaining verified with Vanesa Velazquez
--- NOTE | 2022-01-15 22:37 | PC.NURSE ---
PT BEING TRANSFERRED VIA [facility] PER [facility] TO @ [id number]
--- NOTE | 2022-01-15 22:38 | PC.NURSE ---
EMS here to transport patient to [facility]. Patients pain well controlled at time of discharge. Patient A&O x4 and in stable condition at time of dc. 20 g in left AC is saline locked and remaining in patient for transfer. Last gave meds list given to ambulance personnel.
== END 2022-01-15 22:38 | disposition short-term general hospital (02) ==
LOC: UTC 16:36 → ER 16:37 → 2ND 01-15 01:44
PROVIDERS: Emergency Medicine; Admitting Provider Internal Medicine Adolescent Medicine; Emergency Provider Emergency Medicine; PCP Family Medicine; Visit Provider Internal Medicine Adolescent Medicine
DX: M00.9 Pyogenic arthritis, unspecified (principal); Z20.822 Contact with and (suspected) exposure to COVID-19; Z79.899 Other long term (current) drug therapy; M25.451 Effusion, right hip; M25.452 Effusion, left hip; F31.12 Bipolar disorder, current episode manic without psychotic features, moderate; F11.20 Opioid dependence, uncomplicated; J98.4 Other disorders of lung; F41.9 Anxiety disorder, unspecified
CPT/HCPCS: 71275; 72129; 72132; 72193; 73502; 73721; 74176; 80048; 80053; 80076; 81001; 81025; 83605; 84145; 85025; 85651; 86140; 87040; 87077; 87086; 87186; 93005; 93306; 96375; 96376; 99285; C9803; G0378; J0696; J3370; Q9967; U0003; U0005

== ENCOUNTER 2022-05-13 08:06 | Emergency (ER) | payer OTHER, SELFPAY ==
[2022-05-13 08:08] VITALS: BP 148/88; PULSE 109; RESP 18; TEMP 37.2; O2SAT 98; BMI 23.9
--- NOTE | 2022-05-13 08:25 | XR_ITS ---
FINAL REPORT CLINICAL HISTORY: LEFT CLAVICLE PAIN, HX SURGERY, REDNESS AND PUFFINESS OVER SCAR. COMPARISON: December 11, 2018 FINDINGS: 2 views of the left clavicle were obtained. There are postoperative changes from ORIF with a screw plate and multiple screws. There is no acute bony abnormality. The joint spaces are intact. There is soft tissue swelling superior to the distal clavicle. IMPRESSION: Swelling and postoperative changes. Reviewed, Interpreted and Dictated by Bryon Ortiz III, MD Transcribed by Jude Kat Authenticated and [facility]
--- NOTE | 2022-05-13 08:42 | EXP.UTC ---
Discharge Plan Disposition Patient Disposition: Home, Self-Care Condition: Good Prescriptions Prescriptions: New sulfamethoxazole-trimethoprim [Bactrim DS] 800-160 mg Tablet 1 tab PO BID Qty: 20 0RF methylprednisolone 4 mg Tablets,Dose Pack 4 mg PO DIRECTED Qty: 21 0RF No Action lamotrigine [Lamictal] 150 mg tablet 150 mg PO BID Qty: 60 2RF gabapentin 100 mg capsule 100 mg PO TID Qty: 90 1RF lorazepam [Ativan] 0.5 mg tablet 0.5 mg PO TID Qty: 90 1RF buspirone 10 mg tablet 10 mg PO QIDP PRN (Reason: Anxiety) Qty: 30 0RF quetiapine 100 mg tablet 200 mg PO HS Qty: 90 3RF buprenorphine-naloxone 1 EACH film 1 each SL BID Referrals Follow up/Referrals: Bakari Ramirez MD [Primary Care Provider] - See instructions Activity Restrictions/Add. Instructions Additional Instructions/Restrictions: Go home and rest. It would be best if you rested tomorrow too. No heavy lifting. Take the oral medications as directed. Follow up with your regular doctor. GO TO THE ER FOR ANY WORSENING SYMPTOMS OR CONCERN, ESPECIALLY BOWEL OR BLADDER ISSUES, SADDLE AREA NUMBNESS, FEVER, ETC Make sure you follow up and let your primary care physician evaluate your clavicle area. Clinical Impressions Clinical Impression: Pain of left clavicle Stand Alone Forms Stand Alone Forms: Work/School Release Instructions Patient Instructions: DI for Shoulder Pain Discharge ED Provider: Cuate Hodges [facility] General Stated complaint: Shoulder pain, possible broken clavicle Mode of Arrival: Ambulatory Source of Information: Patient Limitations: No Limitations Time Seen by Provider: 05/13/22 08:43 Description of Symptoms (Recalled from Triage Doc. by RN): c/o redness around her left collar bone, previously had sx on it and a plate was placed. Denies any injuries. HEENT Symptoms (Recalled from RN notes): No Resp Symptoms (Recalled from RN notes): No Skin Symptoms (Recalled from RN notes): No MS Symptoms (Recalled from RN notes): No Functional Status (Recalled from RN notes): na History of Present Illness Provider Complaint: She states that she has been having pain and tenderness of her left clavicle for the past 2 days. She denies any recent injuries. She has had that collar bone broken in the past and has had to have surgery on it to repair it. But, that has been several years ago and she has not had any trouble since. She denies any other musculoskeletal pain. She denies any fever or chills. Related Data Home Medications Medication Instructions Recorded Confirmed buprenorphine 8 mg-naloxone 2 mg 1 each sublingual BID Supplement 01/15/22 03/23/22 sublingual film Previous Rx's Medication Instructions Recorded buspirone 10 mg tablet 10 mg PO QIDP PRN Anxiety #30 tabs 03/09/22 gabapentin 100 mg capsule 100 mg PO TID #90 caps 03/23/22 lamotrigine 150 mg tablet 150 mg PO BID #60 tabs 03/23/22 (Lamictal) lorazepam 0.5 mg tablet (Ativan) 0.5 mg PO TID #90 tabs 03/23/22 quetiapine 100 mg tablet 200 mg PO HS MOOD #90 tabs 05/04/22 methylprednisolone 4 mg tablets in 4 mg PO DIRECTED #21 tabs 05/13/22 a dose pack sulfamethoxazole 800 1 tab PO BID #20 tabs 05/13/22 mg-trimethoprim 160 mg tablet (Bactrim DS) Allergies Allergy/AdvReac Type Severity Reaction Status Date / Time No Known Allergies Allergy Verified 03/23/22 10:16 Worker's Comp Is this a Worker's Comp case?: No [facility] Medical History Bipolar disorder Social History Smoking Status: Current every day smoker tobacco type: e-cigarettes alcohol intake: former substance use type: marijuana, heroin and IV drugs current occupational status: employed Travel in the last 8 weeks: None housing: house number of children: 1 current occupational exposures/hazards: No caffeine: No
[2022-05-13 09:14] VITALS: BP 148/88; PULSE 109; RESP 18; TEMP 37.2; O2SAT 98
== END 2022-05-13 09:21 | disposition home or self-care (01) ==
PROVIDERS: Emergency Provider Nurse Practitioner Family; PCP Emergency Medicine
DX: M25.512 Pain in left shoulder (principal)
CPT/HCPCS: 73000; 99212; G0463

== ENCOUNTER 2022-06-23 16:44 | Emergency (ER) | payer OTHER, SELFPAY ==
[2022-06-23 17:27] VITALS: BP 115/77; PULSE 65; RESP 18; TEMP 36.7; O2SAT 97; BMI 28.3
--- NOTE | 2022-06-23 17:28 | EXP.UTC ---
Discharge Plan Disposition Patient Disposition: Home, Self-Care Condition: Good Prescriptions Prescriptions: New sulfamethoxazole-trimethoprim [Bactrim DS] 800-160 mg Tablet 1 tab PO BID Qty: 20 0RF methylprednisolone 4 mg Tablets,Dose Pack 4 mg PO DIRECTED Qty: 21 0RF No Action escitalopram oxalate [Lexapro] 20 mg tablet 20 mg PO DAILY Qty: 30 2RF lorazepam [Ativan] 0.5 mg tablet 0.5 mg PO TID Qty: 90 0RF Rx Instructions: May fill today, due to moving and lost gabapentin 100 mg capsule 100 mg PO TID Qty: 90 1RF lamotrigine [Lamictal] 150 mg tablet 150 mg PO BID Qty: 60 2RF buspirone 10 mg tablet 10 mg PO QIDP PRN (Reason: Anxiety) Qty: 30 0RF quetiapine 200 mg tablet See Rx Instructions .ROUTE .COMPLEX Qty: 30 3RF Dose Instruction: TAKE 1 TABLET BY MOUTH EVERY NIGHT AT BEDTIME FOR MOOD Rx Instructions: TAKE 1 TABLET BY MOUTH EVERY NIGHT AT BEDTIME FOR MOOD buprenorphine-naloxone 1 EACH film 1 each SL BID Referrals Follow up/Referrals: Bakari Ramirez MD [Primary Care Provider] - See instructions Activity Restrictions/Add. Instructions Additional Instructions/Restrictions: Keep the affected area clean and dry. Follow up with your regular doctor. Take the antibiotics as directed and apply the topical antibiotics as directed. Apply warm wet compresses to the affected area three or four times per day. GO TO THE ER FOR ANY WORSENING SYMPTOMS Clinical Impressions Clinical Impression: Cellulitis of chest wall Instructions Patient Instructions: Cellulitis Discharge ED Provider: Cuate Hodges [facility] General Stated complaint: pain in arm Time Seen by Provider: 06/23/22 17:28 History of Present Illness Provider Complaint: She has a red painful area of her left upper chest. In the past she has had cellulitis of this area. She states that this feels the same. Related Data Home Medications Medication Instructions Recorded Confirmed buprenorphine 8 mg-naloxone 2 mg 1 each sublingual BID Supplement 01/15/22 06/04/22 sublingual film Previous Rx's Medication Instructions Recorded buspirone 10 mg tablet 10 mg PO QIDP PRN Anxiety #30 tabs 03/09/22 gabapentin 100 mg capsule 100 mg PO TID #90 caps 05/21/22 lamotrigine 150 mg tablet 150 mg PO BID #60 tabs 05/21/22 (Lamictal) escitalopram oxalate 20 mg tablet 20 mg PO DAILY #30 tabs 06/04/22 (Lexapro) lorazepam 0.5 mg tablet (Ativan) 0.5 mg PO TID #90 tabs 06/04/22 quetiapine 200 mg tablet See Rx Instructions .Route 06/07/22 .COMPLEX #30 tabs methylprednisolone 4 mg tablets in 4 mg PO DIRECTED #21 tabs 06/23/22 a dose pack sulfamethoxazole 800 1 tab PO BID #20 tabs 06/23/22 mg-trimethoprim 160 mg tablet (Bactrim DS) Allergies Allergy/AdvReac Type Severity Reaction Status Date / Time No Known Allergies Allergy Verified 06/04/22 14:19 [facility] Medical History Bipolar disorder Social History Smoking Status: Current every day smoker tobacco type: e-cigarettes alcohol intake: former substance use type: marijuana, heroin and IV drugs current occupational status: employed Travel in the last 8 weeks: None housing: house number of children: 1 current occupational exposures/hazards: No caffeine: No ROS Obtained: Yes All systems reviewed & no additional complaints except as documented Constitutional Constitutional: Denies chills and Denies fever(s) Eyes Eyes: Denies eye discharge ENT Ears, Nose, Mouth, and Throat: Denies dizziness, Denies otalgia and Denies sore throat Cardiovascular Cardiovascular: Denies chest pain Respiratory Respiratory: Denies shortness of breath, Denies chest congestion, Denies cough, Denies stridor and Denies wheezing Gastrointestinal Gastrointestingal: Denies nausea or vomiting Musculoskeleta
[2022-06-23 17:57] VITALS: BP 112/70; PULSE 62; RESP 18; TEMP 36.7; O2SAT 98
== END 2022-06-23 17:58 | disposition home or self-care (01) ==
PROVIDERS: Emergency Provider Nurse Practitioner Family; PCP Emergency Medicine
DX: L03.313 Cellulitis of chest wall (principal)
CPT/HCPCS: 99212; G0463